=== PATIENT | male | born 1990 | race Caucasian/White ===

== ENCOUNTER 2023-02-28 06:43 | Emergency (ER) | payer SELFPAY ==
[~2023-02-28] VITALS: Ht 165.1 cm; Wt 99.8 kg
[2023-02-28 06:43] VITALS: BP 157/91; PULSE 107; RESP 18; TEMP 98.2; O2SAT 99
[2023-02-28] MEDS ORDERED: ACETAMINOPHEN 325 MG TAB PO ONE (06:50)
--- NOTE | 2023-02-28 06:50 | NUR ---
ermd examining the pt at chair A. a/ox4. not in distress. with pd police.
[2023-02-28 07:09] VITALS: BP 157/91; PULSE 95; RESP 18; TEMP 98.2; O2SAT 99
--- NOTE | 2023-02-28 07:09 | NUR ---
Patient discharged with v/s stable. Written and verbal after care instructions given and explained. Patient verbalized understanding. Police with in custody. All questions addressed prior to discharge. Advised to follow up with [employer]D.
--- NOTE | 2023-02-28 07:09 | NUR ---
unable to do pain reassessment due to pt is being discharge at this moment
== END 2023-02-28 07:09 ==
LOC: MED 06:43
DX: S09.90XA Unspecified injury of head, initial encounter (principal); V49.88XA Car occupant (driver) (passenger) injured in other specified transport accidents, initial encounter; Y93.89 Activity, other specified; Y92.89 Other specified places as the place of occurrence of the external cause; Y99.8 Other external cause status
CPT/HCPCS: 99283